=== PATIENT | male | born 1970 | race Caucasian/White ===

== ENCOUNTER 2018-09-14 16:50 | Emergency (ER) | payer SELFPAY ==
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
[2018-09-14 17:12] VITALS: BMI 32.5
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
[2018-09-14] MEDS ORDERED: KETOROLAC TROMETHAMINE 30 MG/1 ML VIAL IM ONE (17:46)
[2018-09-14] MEDS ORDERED: LIDOCAINE 5% TOPICAL PATCH TP ONE (17:46)
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
[2018-09-14 18:11] VITALS: BP 165/118; PULSE 98; TEMP 98.9
[2018-09-14] MEDS ORDERED: LIDOCAINE 5% TOPICAL PATCH ONE (18:59)
[2018-09-14] MEDS ORDERED: KETOROLAC TROMETHAMINE 30 MG/1 ML VIAL ONE (18:59)
[2018-09-14] MEDS ORDERED: LIDOCAINE PATCH REMOVAL MC SCH (22:00)
== END 2018-09-14 19:41 | disposition home or self-care (01) ==
LOC: JER 16:50
PROC: 3E0233Z Introduction of Anti-inflammatory into Muscle, Percutaneous Approach (ICD-10-PCS; principal; 2018-09-14)
DX: M54.2 Cervicalgia (principal); M54.5 Low back pain; M25.511 Pain in right shoulder; V43.52XA Car driver injured in collision with other type car in traffic accident, initial encounter; Y92.488 Other paved roadways as the place of occurrence of the external cause; Y93.89 Activity, other specified; Y99.8 Other external cause status
CPT/HCPCS: 72050-TC-FY; 72100-TC-FY; 73030-TC-RT-FY; 99283-25

== ENCOUNTER 2020-07-07 20:02 | Emergency (ER) | payer OTHER ==
[2020-07-07 20:14] VITALS: TEMP 98.6; BMI 30.4
--- NOTE | 2020-07-07 21:25 | PDOC ---
Attending Attestation - Resident Resident Name: GraysonCristinarod - ED Attending Attestation I have performed the following: I have examined & evaluated the patient, The case was reviewed & discussed with the resident, I agree w/resident's findings & plan - HPI HPI: 07/07/20 21:33 50 yo male with DM and diet controlled HTN Pt has shakiness and dizziness and low BP. 07/07/20 21:34 Pt has been dieting; old A1C was 10; pt is on allogliptin, glipizide, metformin. - Physicial Exam PE: 07/07/20 21:39 General: awake, alert, fully oriented, in no acute distress, well developed, well nourished Head: normocephalic, atraumatic Eyes: PERRL, EOMI, anicteric sclera, conjunctiva clear ENT: Auricles normal inspection, hearing grossly normal, oropharynx clear without exudates, no nasal congestion, dry mucous membranes Neck: supple, normal ROM, no LAD, JVD or masses Lung: equal breath sounds b/l, CTA b/l, no crackles, wheezes; no distress, speaks full sentences Heart: RRR, normal S1, S2, no murmurs appreciated Abdomen: soft, non tender, normoactive bowel sounds, no guarding, rebound, masses Extremities: normal ROM, no edema, no erythema or tenderness, DP/PT pulses 2+ and symmetric Neuro: Cranial nerves: Cranial nerves II through XII are intact Motor: The upper extremities are 5/5 in all muscle groups. The lower extremities are 5/5 in all muscle groups. No pronator drift. Sensation: Sensation is intact to light touch throughout. Gait: Normal Skin: warm, dry, no rashes or lesions noted, normal skin turgor - Medical Decision Making 07/07/20 22:01 Pt will have basic labs and hydration. We will remove his allogliptin daily and he will continue the metformin and the glipizide. Pt states that all he ate today was scrambled eggs. 07/07/20 22:40 Labs normal; pt feeling fine; he will be discharged home Heart Score/ECG Review - ECG Intrepretation Rhythm: Regular Rhythm - [place]: Normal - P and IA Prominent R with upright T in V1 (true posterior OH): No Delta Wave(s) Present: No WPW: No - QRS Poor R Wave Progression: No Q Wave Present: No - ST and T Early Repolarization: No Flattened T Waves: No Prolonged Q-T Interval: No - ECG Impressions Normal ECG: Yes Non-specific ST Elevation: No Ischemic Changes: No Bradycardia: No Discharge - Discharge Information Problems reviewed: Yes Clinical Impression/Diagnosis: Low blood sugar Condition: Improved Disposition: HOME - Follow up/Referral Referrals: Nehemiah Vee MD [Primary Care Provider] - - Patient Discharge Instructions Patient Printed Discharge Instructions: DI for Hypoglycemia Additional Instructions: You were seen in the ED for complaints of low blood sugar (hypoglycemia) In the ED you were evaluated with lab tests. Your results showed no abnormal values. There does not appear to be an acute need for immediate hospitalization. You are advised to follow up with your Primary Care Physician within 1 week. We recommend stopping one of your diabetes medications that can be causing the low blood sugar (i.e alogliptin) - please discussion this with your PCP. Return to the ED immediately if you experience significant worsening of the symptoms that brought you in including but not limited to dizziness, shaking, seizures, syncope, and confusion. - Post Discharge Activity
[2020-07-07] MEDS ORDERED: SODIUM CHLORIDE 0.9% 500 ML INFUS.BAG IV ONE (21:35)
[2020-07-07 22:06] LABS: BASO % 0.3 % (0-2.0); EOS % 0.6 % (0-4.5); HEMATOCRIT 47.8 % (35.4-49); HEMOGLOBIN 16.3 GM/dL (11.7-16.9); LYMPH % 23.6 % (8-40); MCHC 34.2 g/dl (32.0-35.9); MEAN CELL VOLUME 87.8 fl (80-96); MEAN PLT VOLUME 8.9 fl (7.5-11.1); MONO % 5.2 % (3.8-10.2); NEUT % 70.3 % (42.8-82.8); PLATELET COUNT 219 K/MM3 (134-434); RBC 5.44 M/mm3 (4.00-5.60); RDW 13.5 % (11.9-15.9); WHITE BLOOD COUNT 10.1 K/mm3 (4.0-10.0)
[2020-07-07 22:35] LABS: ALBUMIN 4.2 g/dl (3.4-5.0); BILIRUBIN,TOTAL 0.3 mg/dL (0.2-1); BLOOD UREA NITROGEN 7.4 mg/dL (7-18); CALCIUM 9.5 mg/dL (8.5-10.1); CREATININE 0.9 mg/dL (0.55-1.3); TOT PROT 7.9 g/dl (6.4-8.2)
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
[2020-07-07 22:54] VITALS: BP 154/106; PULSE 66
--- NOTE | 2020-07-08 15:52 | EKG ---
Test Reason : Blood Pressure : / mmHG Vent. Rate : 063 BPM Atrial Rate : 063 BPM P-R Int : 146 ms QRS Dur : 092 ms QT Int : 388 ms P-R-T Axes : 029 055 057 degrees QTc Int : 397 ms NORMAL SINUS RHYTHM NORMAL ECG WHEN COMPARED WITH ECG OF 16-OCT-2010 12:26, NO SIGNIFICANT CHANGE WAS FOUND Confirmed by Alberto Correa ([id number]) on 07/08/2020 3:52:27 PM Referred By: Confirmed By:Alberto Correa
== END 2020-07-07 22:53 | disposition home or self-care (01) ==
LOC: JER 20:02
DX: E16.2 Hypoglycemia, unspecified (principal)
CPT/HCPCS: 36415; 80053; 82962; 85025; 93005; 93010; 99284-25